=== PATIENT | male | born 1935 | race Caucasian/White ===

== ENCOUNTER 2019-08-26 11:02 | Inpatient (IN) | payer MEDICARE, BC ==
--- NOTE | 2019-08-26 11:18 | ED ---
Respiratory - HPI Summary HPI Summary: Pt is an 84 y/o M presenting to the ED brought in by EMS for a respiratory illness. He reports productive cough with yellow/green phlegm, SOB w/ walking, headache, some slight trouble urinating, like he should be going more for the amount of water hes drinking, fever of 101.4, chills, and fatigue. This morning, he experienced N/V/D starting early this morning. He notes some chronic blood in his stool. He was prescribed Omnicef on 08/20, added Zithromax on 08/25, and was told to take both until the Omnicef is finished, then to just take the Zithromax. He received his flu shot this year, and his pneumonia vaccine last year. Pt took first dose of zithromax this morning - vomited after Took APAP this morning. Hx COPD w/ 3L O2 at home. Hx HTN, two quadruple bypasses for which he sees Dr. Mendoza here. He has never been on steroids or anticoagulants, does not use nebulizers, just uses normal daily inhalers. 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 Farr, Dr. Shabazz, and a physician in [place], for which hes taking Methotrexate 5 tablets x 2.5mg on Fridays. Pt's medications reviewed this visit - History of Current Complaint Chief Complaint: EDGeneral Stated Complaint: FLU LIKE SYMPTOMS Hx Obtained From: Patient, EMS Onset/Duration: Sudden Onset, Lasting Days, Still Present Timing: Constant Initial Severity: Mild Current Severity: None Pain Intensity: 0 Character: Cough (Productive), Dyspnea at Rest Sputum Amount: Moderate Sputum Color: Yellow, Green Aggravating Factor(s): Nothing Associated Signs and Symptoms: Fever, SOB, Chills, Dyspnea - Allergy/Home Medications Allergies/Adverse Reactions: Allergies Allergy/AdvReac Type Severity Reaction Status Date / Time No Known Allergies Allergy Verified 05/15/19 14:04 Home Medications: Home Medications Calcium Polycarbophil TAB* [Fibercon TAB*] 625 mg PO DAILY 08/26/19 [History Confirmed 08/26/19] Clobetasol 0.05% OINT* 1 applic TOPICAL EVERY OTHER DAY 08/26/19 [History Confirmed 08/26/19] Diclofenac Sodium 1 % TOPICAL QID 08/26/19 [History Confirmed 08/26/19] Fluorouracil [Carac] 0.5 % TOPICAL EVERY OTHER DAY 08/26/19 [History Confirmed 08/26/19] Folic Acid TAB* [Folvite TAB*] 1 mg PO DAILY 08/26/19 [History Confirmed ] Halobetasol Propionate [Ultravate] 0.05 % TOPICAL DAILY 08/26/19 [History Confirmed 08/26/19] Methotrexate TAB* 12.5 mg PO WEEKLY 08/26/19 [History Confirmed 08/26/19] PMH/Surg Hx/FS Hx/Imm Hx Previously Healthy: Yes Endocrine/Hematology History: Reports: Hx Diabetes - NOT CURRENTLY ON MEDICATION , Hx Thyroid Disease, Hx Anemia Cardiovascular History: Reports: Hx Angina, Hx Cardiac Arrest, Hx Congestive Heart Failure, Hx Coronary Artery Disease, Hx Hypercholesterolemia, Hx Hypertension - BENIGN ESSENTIAL HTN, Hx Pacemaker/ICD, Other Cardiovascular Problems/Disorders - ATRIAL FIBRILLATION; CORONARY ARTERIOSCLEROSIS; Respiratory History: Reports: Hx Chronic Obstructive Pulmonary Disease (COPD), Hx Sleep Apnea - CPAP, Other Respiratory Problems/Disorders - HEMOPTYSIS; CHRONIC RESPIRATORY FAILURE; PULMONARY HYPERTENSION W/ ASCITES GI History: Reports: Hx Gastroesophageal Reflux Disease - ON MED, Hx Gastrointestinal Bleed, Hx Hiatal Hernia, Other GI Disorders - RECURRENT UPPER GI BLEEDING FROM STOMACH LESIONS History: Reports: Hx Acute Renal Failure, Hx Benign Prostatic Hyperplasia, Hx Chronic Renal Failure, Hx Renal Disease, Other Problems/Disorders - BPH- FOLLOWED BY DR WHITE Musculoskeletal History: Reports: Hx Arthritis - LEFT KNEE, HIPS, hands, Other Musculoskeletal History - septoplasty Sensory History: Reports: Hx Cataracts, Hx Contacts or Glasses Denies: Hx Deafness, Hx Hearing Aid Opthamlomology History: Reports: Hx Cataracts, Hx Contacts or Glasses Psychiatric History: Reports: Hx Anxiety, Hx Depression - Surgical History Surgery Procedure, Year, and Place: HEMROIDECTOMYABSCESS REMOVAL. 5 VESSEL CABG 1994; 2002. CARDIAC CATH 10/08/13. BILATERAL CATARACTS. PACEMAKER Hx Anesthesia Reactions: No Infectious Disease History: No Infectious Disease History: Reports: Hx of Known/Suspected MRSA Denies: Traveled Outside the [place] in Last 30 Days - Family History Known Family History: Negative: Diabetes - Social History Alcohol Use: Daily Alcohol Amount: 2 glasses wine per day Hx Substance Use: No Substance Use Type: Reports: None Hx Tobacco Use: Yes Smoking Status (MU): Former Smoker Type: Cigarettes Amount Used/How Often: 3 PPD X <20 YEARS Have You Smoked in the Last Year: No Review of Systems Positive: Fever, Chills, Fatigue Positive: Shortness Of Breath, Cough Positive: Vomiting, Diarrhea, Nausea, Other - chronic blood in stool Positive: frequency All Other Systems Reviewed And Are Negative: Yes Physical Exam - Summary Physical Exam Summary: Vital Signs Reviewed: Yes A+Ox3, coarse cough, tired appearing Eyes: Conjunctiva Clear, BENJAMIN. 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 Skin: Positive: no ecchymosis, LUE bandaged and wrapped -T cell lymphoma Triage Information Reviewed: Yes Vital Signs On Initial Exam: Initial Vitals Temp Pulse Resp BP Pulse Ox 99.2 F 79 18 165/66 99 08/26/19 11:09 08/26/19 11:09 08/26/19 11:09 08/26/19 11:09 08/26/19 11:09 Vital Signs Reviewed: Yes Procedures - Sedation Patient Received Moderate/Deep Sedation with Procedure: No Diagnostics - Vital Signs Vital Signs Temp Pulse Resp BP Pulse Ox 08/26/19 11:09 99.2 F 79 18 165/66 99 - Laboratory Result Diagrams: 08/28/19 06:24 08/28/19 06:24 Lab Statement: Any lab studies that have been ordered have been reviewed, and results considered in the medical decision making process. - Radiology CXR Radiology Interpretation Completed By: Radiologist Summary of Radiographic Findings: Hyperinflation. Consistent with COPD. No active cardiopulmonary disease. ED physician has reviewed this report. Re-Evaluation - Re-Evaluation First Eval Change: Improved - slight improved wheezing after neb reviewed labs and cxr with pt will d/w hospitalist- pt and family in agreement with plan Disposition - Course Course Of Treatment: Pt presents to ED by EMS> Pt with ongoing resp sx, fever, weakness. Pt has been on Omnicef - started zithromax today - vomited. Pt is COPD on oxygen ATC and on methotrexate for cutaneous lymphoma. Will check labs , cxr, flu. tx IVF, steroid, neb. anticipate admission - failed outpt treatment. pt and family comfortable and in agreement. will reassess following neb - Diagnoses Provider Diagnoses: COPD exacerbation, Recurrent fever - Physician Notifications Discussed Care Of Patient With: Trevor Brasher Time Discussed With Above Provider: 12:47 Instructed by Provider To: Admit As Inpatient Discharge ED - Sign-Out/Discharge Documenting (check all that apply): Patient Departure - Discharge Plan Condition: Stable Disposition: ADMITTED TO [facility] - Billing Disposition and Condition Condition: STABLE Disposition: Admitted to [facility] - Attestation Statements Document Initiated by Scribe: Yes Documenting Scribe: Neetu Warner Provider For Whom Scribe is Documenting (Include Credential): Yolette Johns MD. Scribe Attestation: Neetu Mcneal, scribed for Yolette Johns MD. on 09/02/19 at 1229. Scribe Documentation Reviewed: Yes Provider Attestation: The documentation as recorded by the scribeNeetu accurately reflects the service I personally performed and the decisions made by me, Yolette Johns MD. Status of Scribe Document: Viewed
[2019-08-26 11:48] LABS: ABS Basophils 0.1 10^3/ul (0-0.2); ABS Eosinophils 0.2 10^3/ul (0-0.6); ABS Lymphocytes 0.3 10^3/ul (1.0-4.8); ABS Monocytes 0.6 10^3/ul (0-0.8); ABS Neutrophils 4.3 10^3/ul (1.5-7.7); Eosinophil % 4.2 %; Hematocrit 35 % (42-52); Lymphocyte % 6.2 %; Mean Corpuscular HGB Conc 34 g/dL (31-36); Mean Corpuscular Hemoglobin 33 pg (27-31); Mean Corpuscular Volume 98 fL (80-94); Mean Platelet Volume 7.4 fL (7.4-10.4); Platelet Count 213 10^3/uL (150-450); Red Blood Count 3.59 10^6 /uL (4.18-5.48); Red Cell Distribution Width 17 % (10-15); White Blood Count 5.5 10^3/uL (3.5-10.8)
[2019-08-26 12:07] LABS: Albumin/Globulin Ratio 1.1 (1-3); Calcium 9.6 mg/dL (8.6-10.3); EGFR African American 36.1 (>60); EGFR Non-African American 29.8 (>60); Globulin 3.8 g/dL (2-4); Magnesium 1.6 mg/dL (1.9-2.7); Potassium 4.7 mmol/L (3.5-5.0); Total Bilirubin 0.7 mg/dL (0.2-1.0); Total Protein 7.8 g/dL (6.4-8.9)
[2019-08-26] MEDS ORDERED: Albuterol/Ipratropium NEB.SOL* Albuterol 2.5 MG/Ipratropium 0.5 MG 3 ML INH ONE ×2 (12:18→12:48)
[2019-08-26] MEDS ORDERED: methylPREDNISolone 125 MG* 2 ML VIAL IV ONE (12:19)
[2019-08-26] MEDS ORDERED: NS 0.9% 500 ML* 500 ML IV ONE (12:20)
[2019-08-26] MEDS ORDERED: Acetaminophen TAB* 325 MG PO ONE (12:43)
[2019-08-26 12:57] LABS: Influenza A Molecular NEGATIVE (Negative); Influenza B Molecular NEGATIVE (Negative)
[2019-08-26] MEDS: NS 0.9% 1000 ML** 1,000 ML IV SCH ×2 (12:57→20:07)
[2019-08-26] MEDS ORDERED: Magnesium Sulfate IV* 3 GM in NS 0.9% 100 ML* 100 ML IVPB ONE (13:14)
[2019-08-26] MEDS ORDERED: Nitroglycerin TAB 0.4 MG* 0.4 MG TAB SL PRN (13:38)
[2019-08-26] MEDS ORDERED: Acetaminophen TAB* 325 MG PO PRN (13:52)
[2019-08-26 14:13] LABS: C Reactive Protein 129.69 mg/L (<8.01)
[2019-08-26] MEDS: DOXYcycline CAP(*) 100 MG PO SCH ×2 (14:58→20:09)
[2019-08-26] MEDS: cefTRIAXone(*) 1 GM in NS 0.9% 50 ML* 50 ML IVPB SCH (14:58)
[2019-08-26] MEDS ORDERED: Albuterol/Ipratropium NEB.SOL* Albuterol 2.5 MG/Ipratropium 0.5 MG 3 ML INH PRN (15:00)
[2019-08-26] MEDS: CMC:Diclofenac 1% GEL (NF) 100 GM TUBE TOPICAL SCH ×2 (16:02→19:26)
--- NOTE | 2019-08-26 18:05 | HP ---
HISTORY AND PHYSICAL: DATE OF ADMISSION: 08/26/19 ADMITTING PROVIDER: Trevor Brasher MD. PRIMARY CARE PROVIDER: Dr. Arias. CHIEF COMPLAINT: Productive cough, fever, chills, shortness of breath; nausea after azithromycin initiation. HISTORY OF PRESENT ILLNESS: Willow Spangler is an 84-year-old male with past medical history of chronic hypercapnic respiratory failure (using 3 L day and night) secondary to severe COPD; CAD, status post 4-vessel CABG x2; atrial fibrillation (not on anticoagulation); colonic and gastric AVMs (status post recent treatment on 05/19/[address] Storey); recent diagnosis of adult T-cell lymphoma/mycosis fungoides for which he has been getting methotrexate for at least 3 months. He developed cough and fever approximately 1 week ago, saw Danuta Hooker NP at [facility], was prescribed cefdinir 300 mg p.o. b.i.d. on 08/20/19. He did not feel much improvement, although his productive yellow cough did eventually become more clear. He saw Danuta Hooker NP again this morning and was given new prescription for azithromycin. He took 1 tab and not immediately but eventually would vomit this up. He presented to [facility] Room for further evaluation. Here, he had a lactic acidosis of 2.1. He had a fever of 101.4 reportedly this morning and temperature of 99.2 initially here. He was suspected of having COPD exacerbation and of note being on methotrexate and having the underlying T-cell lymphoma/mycosis fungoides, he is immunocompromised. He was referred to hospitalist service for admission. He got Solu-Medrol 125 mg in the emergency room, 1 L of normal saline bolus, a DuoNeb, and Tylenol 650 mg. He was without leukocytosis. Flu swabs were negative. BNP was 112. He denies any muscle aches more than normal. He does have a headache in his frontal sinuses. Denies any rashes other than the T- cell lymphoma, for which he is wearing a specialized dressing - previous to which he had been using clobetasol and fluorouracil creams every other day in rotating fashion. PAST MEDICAL HISTORY: Chronic hypoxic respiratory failure, on 3 L day and night ; severe COPD, with approximately 100-pack years remotely, quitting 30 years ago ; status post 4-vessel CABG x2; obstructive sleep apnea, using BiPAP; chronic iron- deficiency anemia; diet-controlled diabetes mellitus type 2; hypothyroidism; hypertension; hyperlipidemia; recent adult T-cell lymphoma/ mycosis fungoides, on immunosuppressive methotrexate. PAST SURGICAL HISTORY: Four-vessel CABG x2, pacemaker insertion. MEDICATIONS: Include: 1. Advair Diskus 1 puff by mouth twice a day. 2. Atorvastatin 10 mg daily. 3. Diclofenac sodium 1%, apply 2 g to affected joints 4 times a day. 4. Lexapro 10 mg daily. 5. Lasix 20 mg daily. 6. Ferrous sulfate 325 mg b.i.d. 7. Clobetasol propionate 0.05% topical daily. 8. Lisinopril 10 mg daily. 9. Nitrostat 0.4 mg sublingual q.5 minutes p.r.n. 10. Omeprazole 20 mg daily. 11. ProAir 2 puffs inhaled q.4 hours p.r.n. 12. Spiriva 18 mcg daily. 13. Spironolactone/(vs more likely eplerenone) 25 mg daily. 14. Synthroid 100 mcg daily. 15. Xopenex 1.25 mg via nebulizer 3 times a day as needed. 16. Myrbetriq 50 mg daily. 17. Folic acid 1 mg daily. 18. Methotrexate 12.5 mg every Saturday. 19. FiberCon daily. 20. Until recently Clobetasol 0.05% every other day rotating with fluorouracil 5% cream every other day. These have both been held in the setting of his new gel pad dressing. FAMILY HISTORY: Mother of heart disease at age 82. Father of heart disease at age 76. SOCIAL HISTORY: The patient is a former smoker, quit 30 years ago, but smoked for approximately 37 years an average of 3 packs per day, approximately 110- pack years. 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 Medical surrogate is his , Radha Mora. He desires to be a full code. REVIEW OF SYSTEMS: A complete 14-point review of systems negative except as per HPI. PHYSICAL EXAMINATION GENERAL APPEARANCE: No acute distress. VITAL SIGNS: Temperature, T-max of 99.9; pulse rate 64 to 89; respiratory rate 17 to 22; satting 99% to 100% on 3 L; blood pressure initially 165/66, currently 101/51. HEENT: Normocephalic, atraumatic. Pupils are equal, round, and reactive to light. Extraocular motions intact. No scleral icterus. NECK: Supple. LUNGS: With reduced air exchange bilaterally with no wheezing, rales, or rhonchi. CARDIOVASCULAR: Regular rate and rhythm. No murmurs, rubs, or gallops. ABDOMEN: Soft, nontender, nondistended. No rebound. No guarding. EXTREMITIES: Warm, well perfused. No peripheral edema. NEURO: Cranial nerves II through XII intact. Moving all extremities. SKIN: His left upper arm and superior aspect of the forearm have what looked to be desquamated lesions, wrapped with gauze and under that some sort of gel- like pad. He denies any pain or drainage from the site and I do not see any breakthrough drainage. DIAGNOSTIC STUDIES/LAB DATA: White count 5.5, hemoglobin 12.0, hematocrit 35, platelets 213. Sodium 133, potassium 4.7, chloride 99, carbon dioxide 24, BUN 34, creatinine 2.12, glucose 113, lactic acid 2.1, magnesium 1.6, calcium 9.6. Total bili 0.7, AST 41, ALT 35, alk phos 247. BNP 112. Albumin 4.0. Influenza A and B negative. Imaging: Chest x-ray demonstrated no acute cardiac process, with evidence of hyperinflation consistent with COPD. ASSESSMENT AND PLAN: 1. Willow Spangler is an 84-year-old male with past medical history of severe chronic obstructive pulmonary disease with chronic hypoxic and hypercapnic respiratory failure, on 3 L day and night and BiPAP for obstructive sleep apnea ; coronary artery disease, status post CABG; hypertension; question of atrial fibrillation, but not on anticoagulation; with recent diagnosis of adult T-cell lymphoma/mycosis fungoides, on methotrexate for approximately 3 months( was diagnosed on 04/20/19 biopsy). The methotrexate and the underlying adult T- cell lymphoma does put him at increased instance of immunocompromised state and I suspect that his fevers, cough, and shortness of breath are consistent with chronic obstructive pulmonary disease exacerbation, with risk for superinfection that has not been necessarily been adequately covered to date with 7 days of cefdinir 300 mg p.o. b.i.d. He only tolerated 1 dose of azithromycin before throwing it up. I am going to add on MRSA nares swab. Follow up with blood cultures, sputum cultures, Streptococcus pneumoniae and legionella urine antigens. Could consider infectious disease consult depending on clinical course. Starting him on ceftriaxone along with doxycycline with consideration to broaden to stronger MRSA coverage if he does not improve. He does have lactic acidosis of 2.1. Clinically, he is appearing much better to his family after he has gotten 1 L of fluids and 125 mg Solu-Medrol in the emergency room. Continue Solu-Medrol 40 mg q.12 hours. Inhalers, DuoNeb q.6 hours while awake scheduled with q.2 hours p.r.n. Spiriva and his Advair Diskus. His BNP was 112. His echo from 05/27/17 showed EF of 50% to 55%. 2. Mycosis fungoides. He is following up with Dr. Shabazz. He will be held on his methotrexate while he is in the hospital. Next course is due on Saturday. 3. Coronary artery disease. Continue his Lipitor. He is notably not on a beta - roma. Continue nitroglycerin sublingual q.5 minutes p.r.n. 4. Sepsis. He does have slightly elevated lactic acidosis and some fevers reported up to 101.5 and intermittent tachypnea as high as 25, meeting at least 2 systemic inflammatory response syndrome criteria. We will repeat lactic acid within an hour after he has gotten IV fluid bolus. 5. He does have a history of arteriovenous malformations, colonic and gastric, which were treated on 05/19/[address] Storey on EGD. We will have to be careful with his steroids. We will continue PPI prophylaxis. 6. FEN: He can eat a heart-healthy diet. 7. He is a full code. Medical surrogate is his , Radha Mora. [id number]/[facility] #: [id number] [facility] HOSPITALNilay
[2019-08-26] MEDS: Albuterol/Ipratropium NEB.SOL* Albuterol 2.5 MG/Ipratropium 0.5 MG 3 ML INH SCH (19:46)
[2019-08-26] MEDS: Mometasone/Formoter 200/5 MDI INH SCH (19:46)
[2019-08-26] MEDS: Ferrous Sulfate TAB* 325 MG PO SCH (20:09)
[2019-08-26] MEDS: Heparin VIAL(*) 5000 UNITS/ML VIAL (FIVE THOUSAND) SUBCUT SCH (21:24)
[2019-08-27] MEDS: Albuterol/Ipratropium NEB.SOL* Albuterol 2.5 MG/Ipratropium 0.5 MG 3 ML INH SCH ×4 (01:36→19:42)
[2019-08-27] MEDS: NS 0.9% 1000 ML** 1,000 ML IV SCH (03:55)
[2019-08-27] MEDS: Heparin VIAL(*) 5000 UNITS/ML VIAL (FIVE THOUSAND) SUBCUT SCH ×3 (05:51→21:09)
[2019-08-27] MEDS: Levothyroxine TAB* 100 MCG TAB PO SCH (05:51)
[2019-08-27 06:29] LABS: ABS Lymphocytes 0.4 10^3/ul (1.0-4.8); ABS Monocytes 0.2 10^3/ul (0-0.8); ABS Neutrophils 4.2 10^3/ul (1.5-7.7); Hematocrit 31 % (42-52); Hemoglobin 10.4 g/dL (14.0-18.0); Lymphocyte % 9.3 %; Mean Corpuscular HGB Conc 34 g/dL (31-36); Mean Corpuscular Hemoglobin 33 pg (27-31); Mean Corpuscular Volume 99 fL (80-94); Mean Platelet Volume 7.2 fL (7.4-10.4); Nucleated Red Blood Cells % 0.1; Platelet Count 161 10^3/uL (150-450); Red Blood Count 3.11 10^6 /uL (4.18-5.48); Red Cell Distribution Width 17 % (10-15); White Blood Count 4.8 10^3/uL (3.5-10.8)
[2019-08-27 06:42] LABS: BUN/Creatinine Ratio 18.1 (8-20); Calcium 8.5 mg/dL (8.6-10.3); EGFR African American 36.5 (>60); EGFR Non-African American 30.2 (>60); Potassium 4.8 mmol/L (3.5-5.0)
[2019-08-27] MEDS: Mometasone/Formoter 200/5 MDI INH SCH ×2 (07:30→19:55)
[2019-08-27] MEDS: Folic Acid TAB* 1 MG PO SCH (07:53)
[2019-08-27] MEDS: CMC:Diclofenac 1% GEL (NF) 100 GM TUBE TOPICAL SCH ×4 (07:53→20:09)
[2019-08-27] MEDS: DOXYcycline CAP(*) 100 MG PO SCH ×2 (07:53→21:08)
[2019-08-27] MEDS: methylPREDNISolone SOD 40 MG* 1 ML VIAL IV SCH ×2 (07:53→19:24)
[2019-08-27] MEDS: Lisinopril TAB* 10 MG PO SCH (07:54)
[2019-08-27] MEDS: Spironolactone TAB* 25 MG PO SCH (07:54)
[2019-08-27] MEDS: Oxybutynin XL TAB* 5 MG PO SCH (07:54)
[2019-08-27] MEDS: Atorvastatin* 10 MG TAB PO SCH (07:54)
[2019-08-27] MEDS: Escitalopram * 10 MG TAB PO SCH (07:54)
[2019-08-27] MEDS: Pantoprazole TAB * 40 MG TAB PO SCH (07:54)
[2019-08-27] MEDS: Ferrous Sulfate TAB* 325 MG PO SCH ×2 (07:54→21:08)
[2019-08-27] MEDS ORDERED: HALOBETASOL PROPIONATE 0.05% TOPICAL SCH (09:00)
[2019-08-27] MEDS ORDERED: SPIRIVA Respimat* (tiotropium) 2.5 mcg/inh Inhaler INH SCH (09:00)
[2019-08-27] MEDS ORDERED: Mirabegron (NF) 50 MG TAB PO SCH (09:00)
--- NOTE | 2019-08-27 09:35 | PN ---
Subjective Date of Service: 08/27/19 Interval History: no acute events overnight. Afebrile. Some yellow productive cough this AM. Wore CPAP some diarrhea, no abdominal pain, chest pain, left arm does not hurt. Objective Active Medications: Acetaminophen (Tylenol Tab*) 650 mg PO Q6H PRN PRN Reason: PAIN-MILD/TEMP >/= 100.4 Albuterol/Ipratropium (Duoneb (Albuterol 2.5 Mg/Ipratropium 0.5 Mg)) 1 neb INH [id number] AWAKE [facility] Last Admin: 08/27/19 07:30 Dose: 1 neb Albuterol/Ipratropium (Duoneb (Albuterol 2.5 Mg/Ipratropium 0.5 Mg)) 1 neb INH Q2H PRN PRN Reason: SOB/WHEEZING Atorvastatin Calcium (Lipitor*) 10 mg PO DAILY [facility] Last Admin: 08/27/19 07:54 Dose: 10 mg Calcium Polycarbophil (Fibercon Tab*) 625 mg PO DAILY@1200 [facility] Diclofenac Sodium (Voltaren 1% Gel (Nf)) 1 applic TOPICAL QID [facility]; Protocol Last Admin: 08/27/19 07:53 Dose: Not Given Doxycycline Hyclate (Vibramycin Cap(*)) 100 mg PO BID [facility] Last Admin: 08/27/19 07:53 Dose: 100 mg Escitalopram Oxalate (Lexapro *) 10 mg PO DAILY [facility] Last Admin: 08/27/19 07:54 Dose: 10 mg Ferrous Sulfate (Ferrous Sulfate Tab*) 325 mg PO BID [facility] Last Admin: 08/27/19 07:54 Dose: 325 mg Folic Acid (Folvite Tab*) 1 mg PO DAILY [facility] Last Admin: 08/27/19 07:53 Dose: 1 mg Heparin Sodium (Porcine) (Heparin Vial(*)) 5,000 units SUBCUT Q8HR [facility] Last Admin: 08/27/19 05:51 Dose: 5,000 units Sodium Chloride (Ns 0.9% 1000 Ml) 1,000 mls @ 150 mls/hr IV PER RATE [facility] Last Admin: 08/27/19 03:55 Dose: 150 mls/hr Ceftriaxone Sodium 1 gm/ (Sodium Chloride) 50 mls @ 100 mls/hr IVPB Q24H [facility] Last Admin: 08/26/19 14:58 Dose: 100 mls/hr Levothyroxine Sodium (Synthroid Tab*) 100 mcg PO DAILY@0600 [facility] Last Admin: 08/27/19 05:51 Dose: 100 mcg Lisinopril (Prinivil Tab*) 10 mg PO DAILY [facility] Last Admin: 08/27/19 07:54 Dose: 10 mg Methylprednisolone Sodium Succinate (Solu-Medrol 40 Mg) 40 mg IV Q12H [facility] Last Admin: 08/27/19 07:53 Dose: 40 mg Mometasone Furoate/Formoterol Fumar (Dulera 200/5 Mdi*) 2 puff INH BID [facility] Last Admin: 08/27/19 07:30 Dose: 2 puff Nitroglycerin (Nitroglycerin Tab 0.4 Mg*) 0.4 mg SL Q5M PRN PRN Reason: ANGINA Oxybutynin Chloride (Ditropan Xl Tab*) 10 mg PO DAILY [facility] Last Admin: 08/27/19 07:54 Dose: 10 mg Pantoprazole Sodium (Protonix Tab*) 40 mg PO DAILY [facility] Last Admin: 08/27/19 07:54 Dose: 40 mg Spironolactone (Aldactone Tab*) 25 mg PO DAILY [facility] Last Admin: 08/27/19 07:54 Dose: 25 mg Vital Signs - 8 hr 08/27/19 08/27/19 08/27/19 02:55 07:15 07:32 Temperature 97 F 97.4 F Pulse Rate 85 83 80 Respiratory 18 18 18 Rate Blood Pressure 142/58 141/60 (mmHg) O2 Sat by Pulse 98 100 98 Oximetry Oxygen Devices in Use Now: Nasal Cannula Appearance: NAD Neck: NL Appearance and Movements; NL JVP Respiratory: - - distant breath sounds, no rales or rhonchi or wheezing. Extremities: No Edema Skin: - - left upper arm and superior forearm with erythematous rash covered in Neurological: Alert and Oriented x 3 Nutrition: Taking PO's Result Diagrams: 08/27/19 06:00 08/27/19 05:59 Additional Lab and Data: Laboratory Results - last 24 hr 08/26/19 08/26/19 08/26/19 11:26 11:26 11:26 WBC 5.5 RBC 3.59 L Hgb 12.0 L Hct 35 L MCV 98 H MCH 33 H MCHC 34 RDW 17 H Plt Count 213 MPV 7.4 Neut % (Auto) 77.4 Lymph % (Auto) 6.2 [place] % (Auto) 11.1 Eos % (Auto) 4.2 Baso % (Auto) 1.1 Absolute Neuts (auto) 4.3 Absolute Lymphs (auto) 0.3 L Absolute Monos (auto) 0.6 Absolute Eos (auto) 0.2 Absolute Basos (auto) 0.1 Absolute Nucleated RBC 0.0 Nucleated RBC % 0.0 Sodium 133 L Potassium 4.7 Chloride 99 L Carbon Dioxide 24 Anion Gap 10 BUN 34 H Creatinine 2.12 H Est GFR ( Amer) 36.1 Est GFR (Non-Af Amer) 29.8 BUN/Creatinine Ratio 16.0 Glucose 113 H Lactic Acid 2.1 H* Calcium 9.6 Magnesium 1.6 L Total Bilirubin 0.70 AST 41 H ALT 35 Alkaline Phosphatase 247 H C-Reactive Protein 129.69 H B-Natriuretic Peptide Total Protein 7.8 Albumin 4.0 Globulin 3.8 Albumin/Globulin Ratio 1.1 Influenza A (Rapid) Influenza B (Rapid) 08/26/19 08/26/19 08/26/19 11:26 12:15 15:00 WBC RBC Hgb Hct MCV MCH MCHC RDW Plt Count MPV Neut % (Auto) Lymph % (Auto) [place] % (Auto) Eos % (Auto) Baso % (Auto) Absolute Neuts (auto) Absolute Lymphs (auto) Absolute Monos (auto) Absolute Eos (auto) Absolute Basos (auto) Absolute Nucleated RBC Nucleated RBC % Sodium Potassium Chloride Carbon Dioxide Anion Gap BUN Creatinine Est GFR ( Amer) Est GFR (Non-Af Amer) BUN/Creatinine Ratio Glucose Lactic Acid 3.3 H* Calcium Magnesium Total Bilirubin AST ALT Alkaline Phosphatase C-Reactive Protein B-Natriuretic Peptide 112 H Total Protein Albumin Globulin Albumin/Globulin Ratio Influenza A (Rapid) Negative Influenza B (Rapid) Negative 08/27/19 08/27/19 08/27/19 05:59 05:59 06:00 WBC 4.8 RBC 3.11 L Hgb 10.4 L Hct 31 L MCV 99 H MCH 33 H MCHC 34 RDW 17 H Plt Count 161 MPV 7.2 L Neut % (Auto) 87.0 Lymph % (Auto) 9.3 [place] % (Auto) 3.6 Eos % (Auto) 0.0 Baso % (Auto) 0.1 Absolute Neuts (auto) 4.2 Absolute Lymphs (auto) 0.4 L Absolute Monos (auto) 0.2 Absolute Eos (auto) 0.0 Absolute Basos (auto) 0.0 Absolute Nucleated RBC 0.0 Nucleated RBC % 0.1 Sodium 135 Potassium 4.8 Chloride 107 Carbon Dioxide 18 L Anion Gap 10 BUN 38 H Creatinine 2.10 H Est GFR ( Amer) 36.5 Est GFR (Non-Af Amer) 30.2 BUN/Creatinine Ratio 18.1 Glucose 192 H Lactic Acid 3.2 H* Calcium 8.5 L Magnesium Total Bilirubin AST ALT Alkaline Phosphatase C-Reactive Protein B-Natriuretic Peptide Total Protein Albumin Globulin Albumin/Globulin Ratio Influenza A (Rapid) Influenza B (Rapid) Microbiology and Other Data: Microbiology 08/26/19 15:09 Urine Legionella Urinary Antigen - Final Negative Legionella Antigen 08/26/19 15:09 Urine Streptococcus pneumoniae Ag Screen - Final Negative S. 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 Suspected COPD exacebation. Immunocompromised. - Patient Problems (1) COPD exacerbation Current Visit: Yes Status: Acute Code(s): J44.1 - CHRONIC OBSTRUCTIVE PULMONARY DISEASE W (ACUTE) EXACERBATION SNOMED Code(s): 835149330 Comment: Failed outpatient cefdinir x 7 days then vomited up first dose of azithromycin. 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 CXR wtih COPD but no acute process. solumederol 40mg q12 today, s/p 125 in ED on 08/26. strep and legionell Uag negative f/u Sputum Cx Currently on CFTX day 2 and doxycline day 2 ayo flores. (2) DVT prophylaxis Current Visit: No Status: Acute Code(s): XPJ3775 - SNOMED Code(s): 975513520 Comment: heparin (3) Depression Current Visit: No Status: Acute Onset Date: 05/05/14 Code(s): F32.9 - MAJOR DEPRESSIVE DISORDER, SINGLE EPISODE, UNSPECIFIED SNOMED Code(s): 61738236 Comment: Continue lexapro upon returning home. (4) Hypothyroid Current Visit: No Status: Acute Onset Date: 05/05/14 Code(s): E03.9 - HYPOTHYROIDISM, UNSPECIFIED SNOMED Code(s): 98789837 Comment: Continue synthroid 100mcg daily. (5) PIERCE (obstructive sleep apnea) Current Visit: No Status: Acute Code(s): G47.33 - OBSTRUCTIVE SLEEP APNEA ( ADULT) (PEDIATRIC) SNOMED Code(s): 26031117 Comment: Pt will resume usual CPAP at home. (6) CHF (congestive heart failure) Current Visit: No Status: Chronic Priority: Medium Onset Date: 04/23/14 Code(s): I50.9 - HEART FAILURE, UNSPECIFIED SNOMED Code(s): 11577213 Comment: restart lasix 20 daily tomorrow. stop IVF. (7) COPD (chronic obstructive pulmonary disease) Current Visit: No Status: Chronic Onset Date: 05/05/14 Code(s): J44.9 - CHRONIC OBSTRUCTIVE PULMONARY DISEASE, UNSPECIFIED SNOMED Code(s): 95807104 Comment: No signs of exacerbation. Continue usual home medication regimen. (8) Hypertension Current Visit: No Status: Chronic Onset Date: 05/05/14 Code(s): I10 - ESSENTIAL (PRIMARY) HYPERTENSION SNOMED Code(s): 70684171 Comment: BP is under good control. 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 Status and Disposition: medicine obs.
[2019-08-27 10:01] LABS: Magnesium 2.3 mg/dL (1.9-2.7)
[2019-08-27] MEDS ORDERED: Calcium Polycarbophil TAB* 625 MG PO SCH (12:00)
[2019-08-27] MEDS: cefTRIAXone(*) 1 GM in NS 0.9% 50 ML* 50 ML IVPB SCH (13:37)
[2019-08-28] MEDS: Albuterol/Ipratropium NEB.SOL* Albuterol 2.5 MG/Ipratropium 0.5 MG 3 ML INH SCH ×2 (01:41→07:25)
[2019-08-28] MEDS: Levothyroxine TAB* 100 MCG TAB PO SCH (06:22)
[2019-08-28] MEDS: Heparin VIAL(*) 5000 UNITS/ML VIAL (FIVE THOUSAND) SUBCUT SCH (06:22)
[2019-08-28 06:29] LABS: ABS Lymphocytes 0.3 10^3/ul (1.0-4.8); ABS Monocytes 0.4 10^3/ul (0-0.8); ABS Neutrophils 11.6 10^3/ul (1.5-7.7); Hematocrit 27 % (42-52); Hemoglobin 9.4 g/dL (14.0-18.0); Lymphocyte % 2.5 %; Mean Corpuscular HGB Conc 34 g/dL (31-36); Mean Corpuscular Hemoglobin 33 pg (27-31); Mean Corpuscular Volume 97 fL (80-94); Mean Platelet Volume 7.4 fL (7.4-10.4); Platelet Count 176 10^3/uL (150-450); Red Blood Count 2.84 10^6 /uL (4.18-5.48); Red Cell Distribution Width 17 % (10-15); White Blood Count 12.3 10^3/uL (3.5-10.8)
[2019-08-28 07:07] LABS: BUN/Creatinine Ratio 21.8 (8-20); C Reactive Protein 56.45 mg/L (<8.01); EGFR African American 39.3 (>60); EGFR Non-African American 32.5 (>60); Potassium 5.1 mmol/L (3.5-5.0)
[2019-08-28] MEDS: Mometasone/Formoter 200/5 MDI INH SCH (07:25)
[2019-08-28] MEDS: Atorvastatin* 10 MG TAB PO SCH (08:58)
[2019-08-28] MEDS: Lisinopril TAB* 10 MG PO SCH (08:58)
[2019-08-28] MEDS: Pantoprazole TAB * 40 MG TAB PO SCH (08:58)
[2019-08-28] MEDS: Folic Acid TAB* 1 MG PO SCH (08:58)
[2019-08-28] MEDS: methylPREDNISolone SOD 40 MG* 1 ML VIAL IV SCH (08:58)
[2019-08-28] MEDS: DOXYcycline CAP(*) 100 MG PO SCH (08:58)
[2019-08-28] MEDS: Escitalopram * 10 MG TAB PO SCH (08:59)
[2019-08-28] MEDS: Spironolactone TAB* 25 MG PO SCH (08:59)
[2019-08-28] MEDS: Ferrous Sulfate TAB* 325 MG PO SCH (08:59)
[2019-08-28] MEDS: Oxybutynin XL TAB* 5 MG PO SCH (08:59)
[2019-08-28] MEDS: CMC:Diclofenac 1% GEL (NF) 100 GM TUBE TOPICAL SCH (09:00)
[2019-08-28] MEDS ORDERED: Clobetasol 0.05% OINT* 30 GM TUBE TOPICAL SCH (09:00)
[2019-08-28] MEDS ORDERED: FLUOROURACIL TOPICAL SCH (09:00)
[2019-08-28 09:04] VITALS: BP 151/63
--- NOTE | 2019-08-31 10:09 | DS ---
DISCHARGE SUMMARY: DATE OF ADMISSION: 08/26/19 DATE OF DISCHARGE: 08/28/19 ADMITTING PROVIDER AND PROVIDER ON THE DAY OF DISCHARGE: Trevor Brasher MD PRIMARY CARE PROVIDER: Dr. Arisa. CHIEF COMPLAINT: Productive cough, fever, chills, shortness of breath; and nausea/vomiting episode after azithromycin initiation. PRINCIPAL DIAGNOSIS: Chronic obstructive pulmonary disease exacerbation in the setting of immunosuppression. HISTORY OF PRESENT ILLNESS/HOSPITAL COURSE: Willow Spangler is an 84-year-old male with past medical history of chronic hypercapnic and hypoxic respiratory failure (uses 3 L day and night) secondary to severe COPD; CAD, status post 4- vessel CABG x2; atrial fibrillation (not on anticoagulation); colonic and gastric AVMs, status post recent EGD on 05/19/[address] 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 Please see H and P for full details, but briefly he had developed a cough and fever approximately 1 week prior to admission, saw his PCP , who prescribed cefdinir on 08/20/19, but unfortunately he did not feel much improvement and has had a productive yellow cough, which did eventually become more clear. He followed up with PCP again and was given new prescription for azithromycin. He took 1 tab and then not immediately, but within an hour would vomit this up. He presented to [facility] Emergency Room for further evaluation. He reported a fever of 101.4 the morning of admission. Initial lactic acid was 2.1. He got 125 mg of Solu-Medrol in the emergency room, 1 L of normal saline bolus, DuoNeb x3, he was without leukocytosis. Flu swabs were negative. BNP was 112. He did not have any muscle aches other than his normal. He was admitted to the hospitalist service and started on ceftriaxone and doxycycline. His initial chest x-ray demonstrated hyperinflation consistent with COPD with no active cardiopulmonary disease. His Strep pneumoniae and Legionella urine antigens were both negative. His sputum culture resulted normal haily. MRSA of his naris were negative. Blood cultures were negative. He was continued on steroids, inhalers and antibiotics, and he felt improved each day. He was able to ambulate and was considered safe for discharge with continued course of antibiotics, steroids, and inhalers. Of note is being that he is on both methotrexate and has a cutaneous T-cell lymphoma, he is in an immunocompromised state. DISCHARGE MEDICATIONS: Include: 1. Albuterol 2 puffs inhaled q.4 hours p.r.n.. 2. Lipitor 10 mg p.o. daily. 3. Calcium polycarbophil (FiberCon) 625 mg p.o. daily. 4. Clobetasol 0.05% ointment topical every other day. 5. Diclofenac 1% topical 4 times a day. 6. Doxycycline 100 mg p.o. b.i.d. for 5 more days. 7. Lexapro 10 mg p.o. daily. 8. Ferrous sulfate 325 mg p.o. b.i.d. 9. Fluorouracil 0.5% topical every other day. 10. Advair 1 puff inhaled b.i.d. 11. Folic acid 1 mg p.o. daily. 12. Lasix 20 mg p.o. daily. 13. Clobetasol propionate 0.05% topical daily. 14. Xopenex 1 nebulizer inhaled t.i.d. p.r.n. 15. Levothyroxine 100 mcg p.o. daily. 16. Lisinopril 10 mg p.o. daily. 17. Methotrexate 12.5 mg p.o. weekly (on Saturday's). 18. Myrbetriq 50 mg p.o. daily. 19. Nitroglycerin 0.4 mg sublingual q.5 minutes p.r.n. for chest pain. 20. Omeprazole 20 mg p.o. daily. 21. Prednisone 20 mg tabs to be taken 40 mg x4 days, 20 mg x4 days, and stop. 22. Spironolactone 25 mg p.o. daily. 23. Spiriva 1 capsule inhaled daily. FOLLOWUP: The patient should follow up with primary care provider, Dr. Abram Arias or Danuta Hooker NP (who he has been seeing in the office the last 2 times) between the next 4 and 7 days. DISPOSITION: Home. CONDITION: Improved. DISCHARGE DIET: Heart healthy. TIME SPENT ON DISCHARGE: 40 minutes. [id number]/[facility] #: [id number] MTDD
== END 2019-08-28 11:15 | disposition home or self-care (01) | DRG 191 ==
LOC: ED 11:02 → MED 13:30 → UNDOADMOB 13:32 → MED 13:32 → OBSVTOIN 08-27 22:44
PROVIDERS: ADMIT Internal Medicine; ATTEND Internal Medicine
DX: J44.1 Chronic obstructive pulmonary disease with (acute) exacerbation (principal); J96.11 Chronic respiratory failure with hypoxia; J96.12 Chronic respiratory failure with hypercapnia; N18.4 Chronic kidney disease, stage 4 (severe); C84.A0 Cutaneous T-cell lymphoma, unspecified, unspecified site; C84.09 Mycosis fungoides, extranodal and solid organ sites; E87.2 Acidosis; I13.0 Hypertensive heart and chronic kidney disease with heart failure and stage 1 through stage 4 chronic kidney disease, or unspecified chronic kidney disease; I25.10 Atherosclerotic heart disease of native coronary artery without angina pectoris; I48.91 Unspecified atrial fibrillation; G47.33 Obstructive sleep apnea (adult) (pediatric); I50.9 Heart failure, unspecified; E11.22 Type 2 diabetes mellitus with diabetic chronic kidney disease; E03.9 Hypothyroidism, unspecified; E78.5 Hyperlipidemia, unspecified; E78.00 Pure hypercholesterolemia, unspecified; K21.9 Gastro-esophageal reflux disease without esophagitis; M16.0 Bilateral primary osteoarthritis of hip; M17.12 Unilateral primary osteoarthritis, left knee; M19.042 Primary osteoarthritis, left hand; M19.041 Primary osteoarthritis, right hand; F41.9 Anxiety disorder, unspecified; F32.9 Major depressive disorder, single episode, unspecified; R19.7 Diarrhea, unspecified; Z99.81 Dependence on supplemental oxygen; Z95.1 Presence of aortocoronary bypass graft; Z79.899 Other long term (current) drug therapy; Z79.890 Hormone replacement therapy; Z79.51 Long term (current) use of inhaled steroids; Z87.891 Personal history of nicotine dependence; Z95.0 Presence of cardiac pacemaker
CPT/HCPCS: 36415; 71046; 80048; 80053; 83605; 83735; 83880; 85025; 86140; 87040; 87070; 87205; 87641; 87899; 94640; 94660; 96374; 96376; 99284; A9270-GY; G0378; J0696; J1644; J2920; J2930; J3475; J3535

== ENCOUNTER 2022-06-18 17:51 | Inpatient (IN) ==
[2022-06-18 18:33] LABS: ABS Lymphocytes 0.1 10^3/ul (1.0-4.8); ABS Monocytes 0.2 10^3/ul (0-0.8); ABS Neutrophils 3.3 10^3/ul (1.5-7.7); Hematocrit 24 % (42-52); Hemoglobin 7.8 g/dL (14.0-18.0); Lymphocyte % 3.6 %; Mean Corpuscular HGB Conc 32 g/dL (31-36); Mean Corpuscular Hemoglobin 27 pg (27-31); Mean Corpuscular Volume 85 fL (80-94); Mean Platelet Volume 7.5 fL (7.4-10.4); Nucleated Red Blood Cells % 0.1; Platelet Count 356 10^3/uL (150-450); Red Blood Count 2.84 10^6 /uL (4.18-5.48); Red Cell Distribution Width 21 % (10-15); White Blood Count 3.7 10^3/uL (3.5-10.8)
[2022-06-18 18:46] LABS: PCO2 Arterial 37 mmHg (35-45); PO2 Arterial 190 mmHg (80-100)
[2022-06-18 19:19] LABS: Albumin 3.3 g/dL (3.2-5.2); Albumin/Globulin Ratio 1.2 (1-3); Calcium 9.1 mg/dL (8.6-10.3); Globulin 2.8 g/dL (2-4); Total Bilirubin 0.3 mg/dL (0.2-1.0); Total Protein 6.1 g/dL (6.4-8.9); eGFR CKD-EPI 27.4 (>60)
[2022-06-18 19:24] LABS: Potassium 5.2 mmol/L (3.5-5.0)
[2022-06-18] MEDS ORDERED: Albuterol 2.5mg/3 ml (0.083%) NEB.SOLN INH ONE (19:53)
[2022-06-18] MEDS ORDERED: Levalbuterol 1.25MG/0.5ML NEB.SOL INH PRN (21:26)
[2022-06-18] MEDS ORDERED: Albuterol HFA INHALER 8 gm MDI INH PRN (21:26)
[2022-06-18] MEDS ORDERED: methylPREDNISolone SOD SUCC 125 mg 2 ML VIAL IV ONE (21:36)
[2022-06-18 22:19] LABS: Ferritin 56.4 ng/mL (24-336)
[2022-06-18] MEDS ORDERED: Furosemide 40 mg/4 ml IV VIAL IV SLOW PU ONE (22:27)
[2022-06-18] MEDS: Albuterol/Ipratropium NEB.SOL (2.5/0.5 MG) 3 ML NEB.SOLN INH SCH (22:53)
[2022-06-18] MEDS: cefTRIAXone 1 gm/50 mL D5W 1 GM/50 ML BAG IV SCH (23:19)
[2022-06-18] MEDS: Azithromycin 500 mg/250 ml NS 500 MG/250 ML BAG IVPB SCH (23:20)
[2022-06-19 00:27] LABS: High Sensitivity Troponin 1 Hr 22 pg/mL (<20)
[2022-06-19] MEDS: Iron Sucrose 200 MG in NS 0.9% 100 ml BAG 100 ML IVPB SCH ×2 (01:18→08:34)
[2022-06-19] MEDS: Albuterol/Ipratropium NEB.SOL (2.5/0.5 MG) 3 ML NEB.SOLN INH SCH ×3 (03:00→19:08)
[2022-06-19 04:36] LABS: ABS Lymphocytes 0.2 10^3/ul (1.0-4.8); ABS Neutrophils 5.8 10^3/ul (1.5-7.7); Eosinophil % 0.1 %; Hematocrit 24 % (42-52); Hemoglobin 7.6 g/dL (14.0-18.0); Lymphocyte % 2.8 %; Mean Corpuscular HGB Conc 32 g/dL (31-36); Mean Corpuscular Hemoglobin 27 pg (27-31); Mean Corpuscular Volume 85 fL (80-94); Mean Platelet Volume 7.4 fL (7.4-10.4); Platelet Count 334 10^3/uL (150-450); Red Blood Count 2.83 10^6 /uL (4.18-5.48); Red Cell Distribution Width 22 % (10-15)
[2022-06-19 04:43] LABS: INR 0.97 (0.89-1.11)
[2022-06-19 05:00] LABS: Albumin 3.1 g/dL (3.2-5.2); CO2 Carbon Dioxide 26 mmol/L (22-32); Calcium 8.9 mg/dL (8.6-10.3); Chloride 98 mmol/L (101-111); Sodium 131 mmol/L (135-145)
[2022-06-19 05:06] LABS: ALT 14 U/L (7-52); Albumin/Globulin Ratio 1.1 (1-3); Alkaline Phosphatase 107 U/L (35-149); Blood Urea Nitrogen 79 mg/dL (6-24); Globulin 2.9 g/dL (2-4); Glucose 176 mg/dL (70-100); eGFR CKD-EPI 29.1 (>60)
[2022-06-19 05:13] LABS: Anion Gap 7 mmol/L (2-11)
[2022-06-19] MEDS: Heparin 5000 UNITS/ML 1 mL VIAL SUBCUT SCH ×4 (05:32→22:28)
[2022-06-19] MEDS ORDERED: methylPREDNISolone SOD SUCC 40 mg/ml 1 ml VIAL IV SCH (06:00)
[2022-06-19 06:30] LABS: Phosphorus 4.3 mg/dL (2.5-5.0)
[2022-06-19 06:34] LABS: Potassium Redraw 5.2 mmol/L (3.5-5.0)
[2022-06-19 08:54] LABS: Corrected Retic Count 1.1 % (0.5-1.5); Hematocrit for Retic CNT 24 % (42-52); Immature Retic Fraction 0.54; RBC Retic Count 2.82 10^6/uL (4.18-5.48)
[2022-06-19] MEDS ORDERED: Umeclidin/Vilant 62.5 MDI 62.5/25 mcg 14 INH ELLIPTA DEVICE INH SCH (09:00)
[2022-06-19] MEDS ORDERED: D5LR 1000 ml BAG 1,000 ML IV SCH (10:00)
[2022-06-19] MEDS ORDERED: Furosemide 40 mg/4 ml IV VIAL IV SLOW PU ONE (10:09)
[2022-06-19] MEDS ORDERED: Albuterol/Ipratropium NEB.SOL (2.5/0.5 MG) 3 ML NEB.SOLN INH SCH ×3 (11:00→13:00)
[2022-06-19 15:40] LABS: CO2 Carbon Dioxide 25 mmol/L (22-32); Calcium 8.7 mg/dL (8.6-10.3); Chloride 98 mmol/L (101-111); Sodium 132 mmol/L (135-145)
[2022-06-19 15:45] LABS: Anion Gap 9 mmol/L (2-11)
[2022-06-19 15:46] LABS: Blood Urea Nitrogen 77 mg/dL (6-24); Glucose 155 mg/dL (70-100); eGFR CKD-EPI 28.9 (>60)
[2022-06-19 17:25] LABS: Body Fluid Appearance Cloudy; Body Fluid Color Yellow; Body Fluid Source Pleural Fluid
[2022-06-19] MEDS ORDERED: Furosemide 40 mg/4 ml IV VIAL IV ONE (17:30)
[2022-06-19 17:52] LABS: Body Fluid WBC 311 /mcL
[2022-06-19 19:33] LABS: Body Fluid Mono 51 %; Body Fluid Other Cells 7; Body Fluid Total Cells Counted 200
[2022-06-19] MEDS: cefTRIAXone 1 gm/50 mL D5W 1 GM/50 ML BAG IV SCH (20:43)
[2022-06-19] MEDS: Azithromycin 500 mg/250 ml NS 500 MG/250 ML BAG IVPB SCH (22:34)
[2022-06-20 05:32] LABS: ABS Lymphocytes 0.5 10^3/ul (1.0-4.8); ABS Monocytes 0.7 10^3/ul (0-0.8); ABS Neutrophils 4.8 10^3/ul (1.5-7.7); Hematocrit 21 % (42-52); Hemoglobin 6.9 g/dL (14.0-18.0); Lymphocyte % 8.9 %; Mean Corpuscular HGB Conc 32 g/dL (31-36); Mean Corpuscular Hemoglobin 28 pg (27-31); Mean Corpuscular Volume 85 fL (80-94); Mean Platelet Volume 7.3 fL (7.4-10.4); Platelet Count 306 10^3/uL (150-450); Red Blood Count 2.51 10^6 /uL (4.18-5.48); Red Cell Distribution Width 21 % (10-15)
[2022-06-20] MEDS: Heparin 5000 UNITS/ML 1 mL VIAL SUBCUT SCH (06:15)
[2022-06-20 06:19] LABS: ABS Lymphocytes 0.6 10^3/ul (1.0-4.8); ABS Monocytes 0.7 10^3/ul (0-0.8); ABS Neutrophils 5.1 10^3/ul (1.5-7.7); Hematocrit 21 % (42-52); Hemoglobin 6.8 g/dL (14.0-18.0); Lymphocyte % 8.7 %; Mean Corpuscular HGB Conc 33 g/dL (31-36); Mean Corpuscular Hemoglobin 28 pg (27-31); Mean Corpuscular Volume 85 fL (80-94); Mean Platelet Volume 7.4 fL (7.4-10.4); Nucleated Red Blood Cells % 0.1; Platelet Count 290 10^3/uL (150-450); Red Blood Count 2.43 10^6 /uL (4.18-5.48); Red Cell Distribution Width 21 % (10-15); White Blood Count 6.4 10^3/uL (3.5-10.8)
[2022-06-20 06:30] LABS: Albumin 2.7 g/dL (3.2-5.2); Calcium 8.8 mg/dL (8.6-10.3); Magnesium 2.1 mg/dL (1.9-2.7); Potassium 4.3 mmol/L (3.5-5.0); Total Bilirubin 0.2 mg/dL (0.2-1.0)
[2022-06-20 06:36] LABS: Albumin/Globulin Ratio 1.2 (1-3); Globulin 2.3 g/dL (2-4); Phosphorus 4.8 mg/dL (2.5-5.0); eGFR CKD-EPI 27.4 (>60)
[2022-06-20] MEDS: Albuterol/Ipratropium NEB.SOL (2.5/0.5 MG) 3 ML NEB.SOLN INH SCH ×4 (07:47→18:49)
[2022-06-20] MEDS: Polyethylene Glycol 3350 17 GM PACKET PO SCH (08:38)
[2022-06-20] MEDS ORDERED: Pantoprazole VIAL 40 MG VIAL IV ONE (08:38)
[2022-06-20] MEDS: Pantoprazole VIAL 40 MG VIAL IV SCH ×2 (10:00→20:54)
[2022-06-20] MEDS ORDERED: Furosemide 40 mg/4 ml IV VIAL IV SLOW PU ONE (11:02)
[2022-06-20 17:49] LABS: ABS Lymphocytes 0.7 10^3/ul (1.0-4.8); ABS Neutrophils 4.4 10^3/ul (1.5-7.7); Hematocrit 27 % (42-52); Hemoglobin 8.6 g/dL (14.0-18.0); Lymphocyte % 11.5 %; Mean Corpuscular HGB Conc 32 g/dL (31-36); Mean Corpuscular Hemoglobin 28 pg (27-31); Mean Corpuscular Volume 87 fL (80-94); Mean Platelet Volume 7.6 fL (7.4-10.4); Nucleated Red Blood Cells % 0.1; Platelet Count 356 10^3/uL (150-450); Red Blood Count 3.11 10^6 /uL (4.18-5.48); Red Cell Distribution Width 21 % (10-15); White Blood Count 6.1 10^3/uL (3.5-10.8)
[2022-06-20 18:25] LABS: Calcium 9.1 mg/dL (8.6-10.3); Potassium 4.8 mmol/L (3.5-5.0)
[2022-06-20] MEDS: Mometasone/Formoter 200/5 MDI INH SCH (18:48)
[2022-06-20] MEDS: cefTRIAXone 1 gm/50 mL D5W 1 GM/50 ML BAG IV SCH (20:55)
[2022-06-20] MEDS: Azithromycin 500 mg/250 ml NS 500 MG/250 ML BAG IVPB SCH (23:08)
[2022-06-21 05:40] LABS: ABS Lymphocytes 0.4 10^3/ul (1.0-4.8); ABS Monocytes 0.2 10^3/ul (0-0.8); ABS Neutrophils 4.9 10^3/ul (1.5-7.7); Hematocrit 27 % (42-52); Hemoglobin 8.9 g/dL (14.0-18.0); Lymphocyte % 7.9 %; Mean Corpuscular HGB Conc 33 g/dL (31-36); Mean Corpuscular Hemoglobin 28 pg (27-31); Mean Corpuscular Volume 85 fL (80-94); Mean Platelet Volume 7.4 fL (7.4-10.4); Platelet Count 331 10^3/uL (150-450); Red Blood Count 3.16 10^6 /uL (4.18-5.48); Red Cell Distribution Width 21 % (10-15); White Blood Count 5.5 10^3/uL (3.5-10.8)
[2022-06-21 06:04] LABS: Albumin 3.1 g/dL (3.2-5.2); Albumin/Globulin Ratio 1.1 (1-3); Calcium 9.2 mg/dL (8.6-10.3); Globulin 2.8 g/dL (2-4); Magnesium 2.1 mg/dL (1.9-2.7); Phosphorus 4.8 mg/dL (2.5-5.0); Potassium 4.5 mmol/L (3.5-5.0); Total Bilirubin 0.3 mg/dL (0.2-1.0); Total Protein 5.9 g/dL (6.4-8.9); eGFR CKD-EPI 27.7 (>60)
[2022-06-21] MEDS: Albuterol/Ipratropium NEB.SOL (2.5/0.5 MG) 3 ML NEB.SOLN INH SCH ×3 (07:15→19:32)
[2022-06-21] MEDS: Mometasone/Formoter 200/5 MDI INH SCH ×2 (07:15→19:32)
[2022-06-21] MEDS: Polyethylene Glycol 3350 17 GM PACKET PO SCH (08:24)
[2022-06-21] MEDS: Pantoprazole VIAL 40 MG VIAL IV SCH ×2 (08:24→20:31)
[2022-06-21] MEDS: Iron Sucrose 200 MG in NS 0.9% 100 ml BAG 100 ML IVPB SCH (10:49)
[2022-06-21] MEDS ORDERED: Furosemide 40 mg/4 ml IV VIAL IV ONE (11:27)
[2022-06-21 11:49] LABS: Albumin, BF 1.3 g/dL; Fluid Type, Albumin PLEURAL FLUID; Fluid Type, Protein, Total PLEURAL FLUID; Total Protein, BF 2.3 g/dL
[2022-06-21 13:17] LABS: Lactate Dehydrogenase, BF 122 U/L
[2022-06-21 13:38] LABS: Glucose, BF 171 mg/dL
[2022-06-21] MEDS ORDERED: fentaNYL 100 mcg/2 ml 50 MCG/ML VIAL ONE (14:54)
[2022-06-21] MEDS: cefTRIAXone 1 gm/50 mL D5W 1 GM/50 ML BAG IV SCH (20:32)
[2022-06-22] MEDS ORDERED: Furosemide 40 mg/4 ml IV VIAL IV SCH (06:00)
[2022-06-22 06:12] LABS: ABS Lymphocytes 0.7 10^3/ul (1.0-4.8); ABS Monocytes 0.9 10^3/ul (0-0.8); ABS Neutrophils 6.4 10^3/ul (1.5-7.7); Hematocrit 28 % (42-52); Hemoglobin 9.1 g/dL (14.0-18.0); Lymphocyte % 8.7 %; Mean Corpuscular HGB Conc 33 g/dL (31-36); Mean Corpuscular Hemoglobin 28 pg (27-31); Mean Corpuscular Volume 86 fL (80-94); Mean Platelet Volume 7.6 fL (7.4-10.4); Nucleated Red Blood Cells % 0.2; Platelet Count 383 10^3/uL (150-450); Red Blood Count 3.24 10^6 /uL (4.18-5.48); Red Cell Distribution Width 20 % (10-15); White Blood Count 8.1 10^3/uL (3.5-10.8)
[2022-06-22 06:24] LABS: INR 0.98 (0.89-1.11)
[2022-06-22 06:35] LABS: Calcium 9.2 mg/dL (8.6-10.3); Potassium 4.6 mmol/L (3.5-5.0); eGFR CKD-EPI 28.1 (>60)
[2022-06-22] MEDS: Mometasone/Formoter 200/5 MDI INH SCH ×2 (07:08→19:25)
[2022-06-22] MEDS: Albuterol/Ipratropium NEB.SOL (2.5/0.5 MG) 3 ML NEB.SOLN INH SCH ×3 (07:08→19:25)
[2022-06-22] MEDS ORDERED: Furosemide 40 mg/4 ml IV VIAL IV ONE (07:13)
[2022-06-22] MEDS: Pantoprazole VIAL 40 MG VIAL IV SCH ×2 (07:46→20:03)
[2022-06-22] MEDS: Polyethylene Glycol 3350 17 GM PACKET PO SCH (07:46)
[2022-06-22] MEDS: Iron Sucrose 200 MG in NS 0.9% 100 ml BAG 100 ML IVPB SCH (08:13)
[2022-06-22 08:48] LABS: Urine Appearance Clear; Urine Bilirubin Negative (Negative); Urine Blood Negative (Negative); Urine Color Straw; Urine Glucose Negative (Negative); Urine Ketones Negative (Negative); Urine Nitrite Negative (Negative); Urine Protein Negative (Negative); Urine Specific Gravity 1.006 (1.002-1.030); Urine Urobilinogen Negative (Negative)
[2022-06-22 08:56] LABS: Urine Creatinine Concentration 18.44 mg/dL
[2022-06-22] MEDS: Furosemide 40 mg/4 ml IV VIAL IV SCH (13:33)
[2022-06-22] MEDS: Morphine 2 MG/ML SYRINGE IV PRN ×3 (15:39→23:58)
[2022-06-22 16:44] LABS: Calcium 8.7 mg/dL (8.6-10.3); Potassium 4.6 mmol/L (3.5-5.0)
[2022-06-22] MEDS: Senna TAB 8.6 mg TAB PO SCH (20:02)
[2022-06-22] MEDS: cefTRIAXone 1 gm/50 mL D5W 1 GM/50 ML BAG IV SCH (20:03)
[2022-06-23] MEDS: Furosemide 40 mg/4 ml IV VIAL IV SCH ×2 (06:22→18:39)
[2022-06-23 06:47] LABS: ABS Lymphocytes 0.9 10^3/ul (1.0-4.8); ABS Monocytes 1.4 10^3/ul (0-0.8); Eosinophil % 0.1 %; Hematocrit 28 % (42-52); Hemoglobin 9.1 g/dL (14.0-18.0); Mean Corpuscular HGB Conc 33 g/dL (31-36); Mean Corpuscular Hemoglobin 29 pg (27-31); Mean Corpuscular Volume 87 fL (80-94); Mean Platelet Volume 7.4 fL (7.4-10.4); Nucleated Red Blood Cells % 0.1; Platelet Count 368 10^3/uL (150-450); Red Blood Count 3.15 10^6 /uL (4.18-5.48); Red Cell Distribution Width 21 % (10-15); White Blood Count 10.3 10^3/uL (3.5-10.8)
[2022-06-23] MEDS: Albuterol/Ipratropium NEB.SOL (2.5/0.5 MG) 3 ML NEB.SOLN INH SCH ×3 (07:16→19:44)
[2022-06-23] MEDS: Mometasone/Formoter 200/5 MDI INH SCH ×2 (07:16→19:43)
[2022-06-23 07:17] LABS: Calcium 8.9 mg/dL (8.6-10.3); Potassium 4.6 mmol/L (3.5-5.0); eGFR CKD-EPI 28.3 (>60)
[2022-06-23] MEDS: Morphine 2 MG/ML SYRINGE IV PRN ×3 (09:06→19:20)
[2022-06-23] MEDS ORDERED: Albuterol/Ipratropium NEB.SOL (2.5/0.5 MG) 3 ML NEB.SOLN INH SCH (10:00)
[2022-06-23] MEDS: Pantoprazole VIAL 40 MG VIAL IV SCH (10:56)
[2022-06-23] MEDS: Iron Sucrose 200 MG in NS 0.9% 100 ml BAG 100 ML IVPB SCH (10:56)
[2022-06-23] MEDS: Polyethylene Glycol 3350 17 GM PACKET PO SCH (10:57)
[2022-06-23] MEDS: Enoxaparin 30 MG/0.3 ML SYR SUBCUT SCH (13:33)
[2022-06-23] MEDS: Furosemide 40 mg/4 ml IV VIAL IV SLOW PU SCH (16:13)
[2022-06-23] MEDS: cefTRIAXone 1 gm/50 mL D5W 1 GM/50 ML BAG IV SCH (21:08)
[2022-06-23] MEDS: Senna TAB 8.6 mg TAB PO SCH (21:11)
[2022-06-24] MEDS: Albuterol/Ipratropium NEB.SOL (2.5/0.5 MG) 3 ML NEB.SOLN INH SCH ×4 (01:26→19:52)
[2022-06-24] MEDS: Morphine 2 MG/ML SYRINGE IV PRN ×4 (02:21→23:05)
[2022-06-24] MEDS: Ondansetron 4 mg VIAL 2 MG/ML 2 ml VIAL IV PRN ×2 (03:09→19:09)
[2022-06-24 04:23] LABS: ABS Lymphocytes 0.5 10^3/ul (1.0-4.8); ABS Monocytes 1.2 10^3/ul (0-0.8); ABS Neutrophils 7.1 10^3/ul (1.5-7.7); Hematocrit 30 % (42-52); Hemoglobin 9.7 g/dL (14.0-18.0); Lymphocyte % 5.5 %; Mean Corpuscular HGB Conc 32 g/dL (31-36); Mean Corpuscular Hemoglobin 28 pg (27-31); Mean Corpuscular Volume 88 fL (80-94); Mean Platelet Volume 7.4 fL (7.4-10.4); Nucleated Red Blood Cells % 0.1; Platelet Count 396 10^3/uL (150-450); Red Blood Count 3.45 10^6 /uL (4.18-5.48); Red Cell Distribution Width 21 % (10-15); White Blood Count 8.8 10^3/uL (3.5-10.8)
[2022-06-24 04:49] LABS: Calcium 9.4 mg/dL (8.6-10.3); eGFR CKD-EPI 24.9 (>60)
[2022-06-24 04:52] LABS: Potassium 5.3 mmol/L (3.5-5.0)
[2022-06-24] MEDS: Mometasone/Formoter 200/5 MDI INH SCH ×2 (07:10→19:52)
[2022-06-24] MEDS: Polyethylene Glycol 3350 17 GM PACKET PO SCH (08:46)
[2022-06-24] MEDS: Pantoprazole VIAL 40 MG VIAL IV SCH (08:47)
[2022-06-24] MEDS: Iron Sucrose 200 MG in NS 0.9% 100 ml BAG 100 ML IVPB SCH (09:08)
[2022-06-24] MEDS: Enoxaparin 30 MG/0.3 ML SYR SUBCUT SCH (14:01)
[2022-06-24] MEDS: Furosemide 40 mg/4 ml IV VIAL IV SLOW PU SCH (14:01)
[2022-06-24] MEDS: cefTRIAXone 1 gm/50 mL D5W 1 GM/50 ML BAG IV SCH (21:37)
[2022-06-24] MEDS: Senna TAB 8.6 mg TAB PO SCH (21:39)
[2022-06-25 04:48] LABS: ABS Lymphocytes 0.5 10^3/ul (1.0-4.8); ABS Monocytes 1.3 10^3/ul (0-0.8); ABS Neutrophils 6.2 10^3/ul (1.5-7.7); Eosinophil % 0.1 %; Hematocrit 28 % (42-52); Hemoglobin 9.2 g/dL (14.0-18.0); Lymphocyte % 6.8 %; Mean Corpuscular HGB Conc 33 g/dL (31-36); Mean Corpuscular Hemoglobin 29 pg (27-31); Mean Corpuscular Volume 88 fL (80-94); Mean Platelet Volume 7.5 fL (7.4-10.4); Nucleated Red Blood Cells % 0.1; Platelet Count 339 10^3/uL (150-450); Red Blood Count 3.19 10^6 /uL (4.18-5.48); Red Cell Distribution Width 21 % (10-15)
[2022-06-25 05:17] LABS: Calcium 8.8 mg/dL (8.6-10.3); eGFR CKD-EPI 22.4 (>60)
[2022-06-25] MEDS: Morphine 2 MG/ML SYRINGE IV PRN (05:32)
[2022-06-25 05:37] LABS: Potassium 5.2 mmol/L (3.5-5.0)
[2022-06-25] MEDS: Mometasone/Formoter 200/5 MDI INH SCH ×2 (07:30→20:08)
[2022-06-25] MEDS: Albuterol/Ipratropium NEB.SOL (2.5/0.5 MG) 3 ML NEB.SOLN INH SCH ×3 (07:30→20:07)
[2022-06-25] MEDS ORDERED: Dextrose 50% Syringe 50 ml 25 GM/50 ML SYRINGE IV PUSH ONE (08:21)
[2022-06-25] MEDS ORDERED: Morphine 2 MG/ML SYRINGE IV PRN (08:29)
[2022-06-25] MEDS ORDERED: SODIUM ZIRCONIUM CYCLOSILICATE 10 GM PACKET PO SCH (09:00)
[2022-06-25] MEDS ORDERED: Iron Sucrose 200 MG in NS 0.9% 100 ml BAG 100 ML IVPB SCH (09:00)
[2022-06-25] MEDS: Pantoprazole VIAL 40 MG VIAL IV SCH (09:32)
[2022-06-25] MEDS: Polyethylene Glycol 3350 17 GM PACKET PO SCH (09:32)
[2022-06-25 11:41] LABS: Ur Urea Nitrogen Concentration 420 mg/dL; Urine Creatinine Concentration 63.41 mg/dL; Urine Sodium Concentration < 18 mmol/L
[2022-06-25] MEDS ORDERED: fentaNYL 100 mcg/2 ml 50 MCG/ML VIAL ONE (11:55)
[2022-06-25] MEDS ORDERED: Midazolam 2 mg/2 ml VIAL 1 mg/ml 2 ml VIAL (2 mg) ONE (11:55)
[2022-06-25] MEDS ORDERED: Lidocaine 1% VIAL 10 MG/ML VIAL ONE (11:55)
[2022-06-25 11:59] LABS: Urine Osmo 284 mOsm/kg (150-1150)
[2022-06-25] MEDS ORDERED: Morphine ORAL CONCENTRATE 5 MG/0.25 ML ORAL.SYRIN SL PRN (12:03)
[2022-06-25 13:17] LABS: Urine Appearance Clear; Urine Bilirubin Negative (Negative); Urine Blood Negative (Negative); Urine Color Yellow; Urine Glucose Negative (Negative); Urine Ketones Negative (Negative); Urine Nitrite Negative (Negative); Urine Protein Negative (Negative); Urine Specific Gravity 1.011 (1.002-1.030); Urine Urobilinogen Negative (Negative)
[2022-06-25] MEDS ORDERED: Bumetanide IV 0.25 MG/ML 4 ml VIAL (1 mg) SLOW PUSH SCH ×2 (14:00)
[2022-06-25] MEDS: Enoxaparin 30 MG/0.3 ML SYR SUBCUT SCH (14:49)
[2022-06-25 17:49] LABS: Calcium 8.9 mg/dL (8.6-10.3); eGFR CKD-EPI 22.6 (>60)
[2022-06-26 05:48] LABS: Calcium 8.5 mg/dL (8.6-10.3); eGFR CKD-EPI 20.7 (>60)
[2022-06-26] MEDS: Bumetanide IV 0.25 MG/ML 4 ml VIAL (1 mg) SLOW PUSH SCH ×3 (06:05→13:20)
[2022-06-26 06:08] LABS: Potassium 5.2 mmol/L (3.5-5.0)
[2022-06-26 06:49] LABS: ABS Lymphocytes 0.2 10^3/ul (1.0-4.8); ABS Monocytes 0.4 10^3/ul (0-0.8); ABS Neutrophils 5.5 10^3/ul (1.5-7.7); Hematocrit 26 % (42-52); Hemoglobin 8.6 g/dL (14.0-18.0); Lymphocyte % 3.9 %; Mean Corpuscular HGB Conc 33 g/dL (31-36); Mean Corpuscular Hemoglobin 29 pg (27-31); Mean Corpuscular Volume 88 fL (80-94); Mean Platelet Volume 7.9 fL (7.4-10.4); Nucleated Red Blood Cells % 0.1; Platelet Count 311 10^3/uL (150-450); Red Blood Count 2.92 10^6 /uL (4.18-5.48); Red Cell Distribution Width 21 % (10-15); White Blood Count 6.2 10^3/uL (3.5-10.8)
[2022-06-26] MEDS: Albuterol/Ipratropium NEB.SOL (2.5/0.5 MG) 3 ML NEB.SOLN INH SCH ×3 (07:45→20:30)
[2022-06-26] MEDS: Mometasone/Formoter 200/5 MDI INH SCH ×2 (07:51→20:31)
[2022-06-26] MEDS: Pantoprazole VIAL 40 MG VIAL IV SCH (09:29)
[2022-06-26] MEDS: Enoxaparin 30 MG/0.3 ML SYR SUBCUT SCH (12:13)
[2022-06-26] MEDS ORDERED: Morphine ORAL CONCENTRATE 5 MG/0.25 ML ORAL.SYRIN SL PRN (12:29)
[2022-06-26] MEDS ORDERED: Bumetanide IV 0.25 MG/ML 4 ml VIAL (1 mg) SLOW PUSH ONE (15:00)
[2022-06-26 16:23] LABS: Calcium 8.6 mg/dL (8.6-10.3); eGFR CKD-EPI 22.6 (>60)
[2022-06-26 16:32] LABS: Potassium 5.1 mmol/L (3.5-5.0)
[2022-06-26] MEDS: Bumetanide IV 10 MG in Premix IV 0 ML IV SCH ×2 (17:05→23:22)
[2022-06-26 22:51] LABS: Blood Urea Nitrogen 109 mg/dL (6-24); CO2 Carbon Dioxide 24 mmol/L (22-32); Calcium 8.7 mg/dL (8.6-10.3); Chloride 87 mmol/L (101-111); Glucose 188 mg/dL (70-100); Magnesium 2.2 mg/dL (1.9-2.7); Sodium 124 mmol/L (135-145); eGFR CKD-EPI 22.3 (>60)
[2022-06-26 22:53] LABS: Anion Gap 13 mmol/L (2-11)
[2022-06-27 01:33] LABS: Potassium, Whole Blood 5.4 mmol/L (3.4-4.5)
[2022-06-27 02:18] LABS: Calcium 8.8 mg/dL (8.6-10.3); Magnesium 2.1 mg/dL (1.9-2.7); Potassium 5.5 mmol/L (3.5-5.0)
[2022-06-27 05:30] LABS: Hematocrit 30 % (42-52); Hemoglobin 9.5 g/dL (14.0-18.0); Mean Corpuscular HGB Conc 32 g/dL (31-36); Mean Corpuscular Hemoglobin 28 pg (27-31); Mean Corpuscular Volume 88 fL (80-94); Mean Platelet Volume 7.9 fL (7.4-10.4); Platelet Count 374 10^3/uL (150-450); Red Blood Count 3.37 10^6 /uL (4.18-5.48); Red Cell Distribution Width 22 % (10-15); White Blood Count 9.2 10^3/uL (3.5-10.8)
[2022-06-27] MEDS: Albuterol/Ipratropium NEB.SOL (2.5/0.5 MG) 3 ML NEB.SOLN INH SCH ×3 (07:47→19:06)
[2022-06-27] MEDS: Mometasone/Formoter 200/5 MDI INH SCH ×2 (07:47→19:06)
[2022-06-27] MEDS: CALCIUM GLUCONATE 1GM/50ML NS 1 GM/50 ML BAG IV ONE ×2 (08:58→09:55)
[2022-06-27] MEDS ORDERED: SODIUM ZIRCONIUM CYCLOSILICATE 10 GM PACKET PO SCH (09:00)
[2022-06-27] MEDS ORDERED: Sodium Polystyrene ORAL.SUSP 15 GM/60 ML BTL PO SCH (09:00)
[2022-06-27] MEDS: Bumetanide IV 10 MG in Premix IV 0 ML IV SCH ×2 (09:51→19:56)
[2022-06-27] MEDS ORDERED: Morphine ORAL CONCENTRATE 5 MG/0.25 ML ORAL.SYRIN SL PRN (09:52)
[2022-06-27] MEDS: Polyethylene Glycol 3350 17 GM PACKET PO SCH (09:56)
[2022-06-27] MEDS: Pantoprazole VIAL 40 MG VIAL IV SCH (09:56)
[2022-06-27] MEDS: BEXAROTENE PO SCH (10:05)
[2022-06-27 10:10] LABS: Calcium 8.8 mg/dL (8.6-10.3); eGFR CKD-EPI 21.8 (>60)
[2022-06-27] MEDS: Sodium Polystyrene ORAL.SUSP 15 GM/60 ML BTL PO SCH ×4 (11:03→19:56)
[2022-06-27] MEDS: Enoxaparin 30 MG/0.3 ML SYR SUBCUT SCH (14:31)
[2022-06-27 16:55] LABS: Calcium 8.9 mg/dL (8.6-10.3); Potassium 4.8 mmol/L (3.5-5.0); eGFR CKD-EPI 21.8 (>60)
[2022-06-28 02:42] LABS: Calcium 8.2 mg/dL (8.6-10.3); Potassium 4.3 mmol/L (3.5-5.0); eGFR CKD-EPI 22.5 (>60)
[2022-06-28] MEDS: Albuterol/Ipratropium NEB.SOL (2.5/0.5 MG) 3 ML NEB.SOLN INH SCH ×3 (07:15→19:03)
[2022-06-28] MEDS: Mometasone/Formoter 200/5 MDI INH SCH ×2 (07:18→19:03)
[2022-06-28] MEDS: Pantoprazole VIAL 40 MG VIAL IV SCH (10:17)
[2022-06-28] MEDS: BEXAROTENE PO SCH (10:17)
[2022-06-28 11:38] LABS: Calcium 8.5 mg/dL (8.6-10.3); Magnesium 2.1 mg/dL (1.9-2.7); Potassium 4.1 mmol/L (3.5-5.0); eGFR CKD-EPI 23.1 (>60)
[2022-06-28] MEDS: Bumetanide IV 10 MG in Premix IV 0 ML IV SCH (14:34)
[2022-06-28] MEDS: Fluticasone NASAL SPRAY 50MCG 16 gm SPRAY BTL BOTH NARES SCH (20:53)
[2022-06-29] MEDS: Albuterol/Ipratropium NEB.SOL (2.5/0.5 MG) 3 ML NEB.SOLN INH SCH (06:52)
[2022-06-29] MEDS: Mometasone/Formoter 200/5 MDI INH SCH (06:55)
[2022-06-29] MEDS: Polyethylene Glycol 3350 17 GM PACKET PO SCH (08:40)
[2022-06-29] MEDS: Pantoprazole VIAL 40 MG VIAL IV SCH (08:44)
[2022-06-29] MEDS: Fluticasone NASAL SPRAY 50MCG 16 gm SPRAY BTL BOTH NARES SCH (10:27)
[2022-06-29 10:57] VITALS: BP 127/54
== END 2022-06-29 11:10 | disposition hospice, home (50) | DRG 291 ==
LOC: ED 17:51 → EDHOLD 20:48 → ICU 21:33
PROVIDERS: ADMIT Internal Medicine Critical Care Medicine; ATTEND Internal Medicine Critical Care Medicine